=== PATIENT | female | born 1965 | race Asian ===

== ENCOUNTER 2016-08-04 18:17 | Inpatient (IN) | payer SELFPAY ==
[~2016-08-04] VITALS: Ht 149.9 cm; Wt 56.3 kg
[2016-08-04] VITALS (7 sets, daily range): BP systolic 94–118; BP diastolic 51–80; PULSE 77–87; RESP 16–20; TEMP 98.9–99.4; O2SAT 97–100
[2016-08-04] MEDS ORDERED: SODIUM CHLORIDE 0.9% FLUSH 5 ML FLUSH IVF PRN (19:15)
--- NOTE | 2016-08-04 19:18 | PD ---
HPI Chief Complaint: Bleeding Time Seen by Provider: 19:03 Travel History International Travel<30 days: No Contact w/Intl Traveler<30days: No Traveled to known affect area: No History of Present Illness HPI The patient is a 51-year-old obese female who states that she was told by her [facility] herbal physician to go to the emergency department to get a transfusion. She has heavy periods and this last one is lasted for 2 months. When she stands up she gets dizzy and she feels generally weak. She had a transfusion and 2004 for the same reason. Her hemoglobin at that time was 5.9. She does not have a primary care physician or reinforcing iron and rebar workers. She denies any melanotic or bloody stools. She denies any fever. She does have occasional shortness of breath. Her only chest pain as a sharp chest pain at the costochondral junction on the left. PFSH Past Medical History Alzheimer's Disease: Yes Arthritis: No Asthma: No Autoimmune Disease: No Blood Disorders: No Cancer: No Chemotherapy: No COPD: No Cerebrovascular Accident: No GERD: No Glaucoma: No Hepatitis: No Hiatal Hernia: No Kidney Stones: No Psychiatric: No Reproductive: Yes (VAGINAL BLEEDING) Immunizations Current: Yes Radiation Therapy: No Renal Failure: No Seizures: No Sleep Apnea: No Thyroid Disease: No Ulcer: No Tetanus Vaccination: Unknown ?: Not LMP: CONTINUOUS X 2-3 MONTHS Past Surgical History AICD: No Genitourinary Surgery: No Pacemaker: No Other Surgery: Yes (BREAST AUGMENTATION, RHINOPLASTY) Social History Alcohol Use: Yes (RARE) Tobacco Use: No (NEVER) Substance Use: No Allergies-Medications (Allergen,Severity, Reaction): Coded Allergies: No Known Allergies (Verified , 08/04/16) Reported Meds & Prescriptions Reported Meds & Active Scripts Active No Active Prescriptions or Reported Medications Review of Systems Except as stated in HPI: all other systems reviewed are Neg Physical Exam Narrative GENERAL: The patient is alert, oriented 3, extremely anemic appearing and no other apparent distress. Her vital signs show blood pressure 9451 and otherwise normal. SKIN: Warm and dry. HEAD: Atraumatic. Normocephalic. EYES: Pupils equal and round. No scleral icterus. No injection or drainage. ENT: No nasal bleeding or discharge. Mucous membranes pink and moist. NECK: Trachea midline. No JVD. CARDIOVASCULAR: Regular rate and rhythm. No murmur appreciated. RESPIRATORY: No accessory muscle use. Clear to auscultation. Breath sounds equal bilaterally. GASTROINTESTINAL: Abdomen soft, non-tender, nondistended. Hepatic and splenic margins not palpable. MUSCULOSKELETAL: No obvious deformities. No clubbing. No cyanosis. No edema. NEUROLOGICAL: Awake and alert. No obvious cranial nerve deficits. Motor grossly within normal limits. Normal speech. PSYCHIATRIC: Appropriate mood and affect; insight and judgment normal. Data Data Last Documented VS Vital Signs Date Time Temp Pulse Resp B/P Pulse Ox O2 Delivery O2 Flow Rate FiO2 08/04/16 18:42 79 16 100 Room Air 08/04/16 18:23 98.9 94/51 Orders Basic Metabolic Panel (Bmp) (08/04/16 19:12) Comprehensive Metabolic Panel (08/04/16 19:12) Prothrombin Time / Inr (Pt) (08/04/16 19:12) Act Partial Throm Time (Ptt) (08/04/16 19:12) Urinalysis - C+S If Indicated (08/04/16 19:12) Red Blood Cells (Rbc) (08/04/16 19:12) Ecg Monitoring (08/04/16 19:12) Iv Access Insert/Monitor (08/04/16 19:12) Oximetry (08/04/16 19:12) Sodium Chloride 0.9% Flush (Ns Flush) (08/04/16 19:15) Type And Screen (08/04/16 19:12) Complete Blood Count With Diff (08/04/16 19:35) Ferritin (08/04/16 20:04) Iron/Tibc Profile (08/04/16 20:04) Blood Product Administration .UPON TRANSFUSION (08/04/16 20:06) Admit To Inpatient (08/04/16 ) Vital Signs (Adult) Q4H (08/04/16 20:06) Activity Oob With Assistance (08/04/16 20:06) Reamer Hand / Telemetry .CONTINUOUS (08/04/16 20:06) Intake + Output GARY.QSHIFT (08/04/16 20:06) Diet Regular Basic (08/05/16 Breakfast) Sodium Chloride 0.9% Flush (Ns Flush) (08/04/16 20:15) Sodium Chloride 0.9% Flush (Ns Flush) (08/04/16 21:00) Ondansetron Inj (Zofran Inj) (08/04/16 20:15) Bisacodyl Supp (Dulcolax Supp) (08/04/16 20:15) Comprehensive Metabolic Panel (08/05/16 06:00) Complete Blood Count With Diff (08/05/16 06:00) Scd Bilateral/Knee High GARY.BID (08/04/16 20:06) Sung Bilateral/Knee High GARY.QSHIFT (08/04/16 20:06) Acetaminophen (Tylenol) (08/04/16 20:15) Acetamin-Hydrocod 325-5 Mg ([place] 5-325 (08/04/16 20:15) Morphine Inj (Morphine Inj) (08/04/16 20:15) Inpatient Certification (08/04/16 ) Consult Gynecology (08/04/16 ) Us Pelvis Comp W Transvaginal (08/04/16 ) Hgb & Hct (08/04/16 20:08) Urine Culture (08/04/16 19:00) Labs Laboratory Tests Test 08/04/16 19:00 White Blood Count 8.8 TH/MM3 Red Blood Count 2.38 MIL/MM3 Hemoglobin 4.1 GM/DL Hematocrit 14.2 % Mean Corpuscular Volume 59.7 FL Mean Corpuscular Hemoglobin 17.3 PG Mean Corpuscular Hemoglobin 29.0 % Concent Red Cell Distribution Width 20.3 % Platelet Count 193 TH/MM3 Mean Platelet Volume 8.6 FL Neutrophils (%) (Auto) 67.3 % Lymphocytes (%) (Auto) 22.7 % Monocytes (%) (Auto) 9.1 % Eosinophils (%) (Auto) 0.3 % Basophils (%) (Auto) 0.6 % Neutrophils # (Auto) 5.9 TH/MM3 Lymphocytes # (Auto) 2.0 TH/MM3 Monocytes # (Auto) 0.8 TH/MM3 Eosinophils # (Auto) 0.0 TH/MM3 Basophils # (Auto) 0.1 TH/MM3 CBC Comment AUTO DIFF Differential Comment AUTO DIFF CONFIRMED Platelet Estimate NORMAL Platelet Morphology Comment NORMAL Spherocytes OCC Ovalocytes 1+ Prothrombin Time 10.1 SEC Prothromb Time International 0.9 RATIO Ratio Activated Partial 24.5 SEC Thromboplast Time Urine Color ORANGE Urine Turbidity SLIGHT Urine pH 6.5 Urine Specific [place] GREATER THAN 1.035 Urine Protein 300 OR GREATER mg/dL Urine Glucose (UA) NEG mg/dL Urine Ketones NEG mg/dL Urine Occult Blood LARGE Urine Nitrite POS Urine Bilirubin NEG Urine Leukocyte Esterase MOD Urine RBC 4-9 /hpf Urine WBC 9-14 /hpf Urine WBC Clumps OCC Urine Amorphous Sediment MOD Urine Bacteria OCC /hpf Urine Mucus MOD /lpf Microscopic Urinalysis Comment CULTURE INDICATED Sodium Level 141 MEQ/L Potassium Level 3.5 MEQ/L Chloride Level 107 MEQ/L Carbon Dioxide Level 24.9 MEQ/L Anion Gap 9 MEQ/L Blood Urea Nitrogen 11 MG/DL Creatinine 0.68 MG/DL Estimat Glomerular Filtration 91 ML/MIN Rate Random Glucose 87 MG/DL Calcium Level 7.6 MG/DL Total Bilirubin 0.3 MG/DL Aspartate Amino Transf 13 U/L (AST/SGOT) Alanine Aminotransferase 17 U/L (ALT/SGPT) Alkaline Phosphatase 41 U/L Total Protein 6.8 GM/DL Albumin 3.3 GM/DL MDM Medical Decision Making Medical Screen Exam Complete: Yes Emergency Medical Condition: Yes Medical Record Reviewed: Yes Interpretation(s) The hemoglobin is 4.1 with hematocrit of 14.2. The platelet count is normal. The MCV, MCH and MCHC are all low. The coagulation profile is normal. The complete metabolic profile shows a calcium 7.6 and albumin 3.3 but is otherwise unremarkable. The urine shows 300 or greater protein, specific gravity greater than 1.035, large occult blood, positive nitrite, 4-19 red cells with 9-14 white cells, occasional bacteria and culture is indicated. Differential Diagnosis Anemia, vaginal bleeding, noncompliance to physician follow-up, urinary tract infection, electrolyte disorder Narrative Course The patient has severe anemia which is likely from her vaginal bleeding. Plan: Patient be admitted and given multiple transfusions. Diagnosis Primary Impression: Anemia Additional Impression: Vaginal bleeding, abnormal Admitting Information Admitting Physician Requests: Admit Scripts No Active Prescriptions or Reported Zhao Chen MD Aug 04, 2016 19:18
[2016-08-04 19:45] LABS: BLOOD, URINE LARGE (NEG); GLUCOSE,URINE NEG (NEG); KETONE, URINE NEG (NEG); PH, URINE 6.5 (5.0-8.5)
[2016-08-04 19:48] LABS: AUTOMATED NEUTROPHIL # 5.9 TH/MM3 (1.8-7.7); BASOPHIL # 0.1 TH/MM3 (0-0.2); BASOPHIL % 0.6 % (0.0-2.0); EOSINOPHIL % 0.3 % (0.0-4.0); LYMPH % 22.7 % (9.0-44.0); MEAN CELL VOLUME 59.7 FL (80.0-100.0); MEAN CORPUSCULAR HEMOGLOBIN 17.3 PG (27.0-34.0); MONO % 9.1 % (0.0-8.0); NEUT % 67.3 % (16.0-70.0); PLATELET COUNT 193 TH/MM3 (150-450); RED BLOOD COUNT 2.38 MIL/MM3 (4.00-5.30); RED CELL DISTRIBUTION WIDTH 20.3 % (11.6-17.2); WHITE BLOOD COUNT 8.8 TH/MM3 (4.0-11.0)
[2016-08-04 19:50] LABS: HEMO FLAGS AUTO DIFF
[2016-08-04 19:54] LABS: HEMATOCRIT 14.2 % (35.0-46.0)
[2016-08-04 20:08] LABS: CHLORIDE 107 MEQ/L (98-107); POTASSIUM 3.5 MEQ/L (3.5-5.1); SODIUM (NA) 141 MEQ/L (136-145)
[2016-08-04 20:11] LABS: ANION GAP 9 MEQ/L (5-15); BICARBONATE 24.9 MEQ/L (21.0-32.0); BLOOD UREA NITROGEN 11 MG/DL (7-18); OVALOCYTES 1+ (NORMAL); PLATELET ESTIMATE SMEAR NORMAL (NORMAL); PLATELET MORPHOLOGY NORMAL (NORMAL); SCAN/DIFF AUTO DIFF CONFIRMED; SPHEROCYTES OCC (NORMAL)
[2016-08-04 20:12] LABS: APTT (PATIENT) 24.5 SEC (24.3-30.1); INTERNATIONAL NORMALIZED RATIO 0.9 RATIO; PROTHROMBIN TIME - PATIENT 10.1 SEC (9.8-11.6)
[2016-08-04 20:14] LABS: ALT (GPT) 17 U/L (10-53)
[2016-08-04 20:15] LABS: AST (GOT) 13 U/L (15-37); GLOMERULAR FILTRATION RATE 91 ML/MIN (>89)
[2016-08-04] MEDS ORDERED: SODIUM CHLORIDE 0.9% FLUSH 5 ML FLUSH FLUSH PRN (20:15)
[2016-08-04] MEDS ORDERED: MORPHINE SULFATE 4 MG/ML INJ IV PRN (20:15)
[2016-08-04] MEDS ORDERED: ONDANSETRON HCL 4 MG/2 ML VIAL IVP PRN (20:15)
[2016-08-04] MEDS ORDERED: BISACODYL 10 MG SUPP PR PRN (20:15)
[2016-08-04] MEDS ORDERED: ACETAMINOPHEN/HYDROcodone 325 MG/5 MG TAB PO PRN (20:15)
[2016-08-04] MEDS ORDERED: ACETAMINOPHEN 325 MG TAB PO PRN (20:15)
[2016-08-04 20:16] LABS: TOTAL BILIRUBIN ADULT 0.3 MG/DL (0.2-1.0)
[2016-08-04 20:17] LABS: ALKALINE PHOSPHATASE 41 U/L (45-117)
[2016-08-04 20:19] LABS: NITRITE,URINE POS (NEG)
[2016-08-04 20:20] LABS: MUCUS URINE MOD /lpf (OCC); URINE COLOR ORANGE (YELLW/STRAW)
[2016-08-04 20:21] LABS: BACTERIA, URINE OCC /hpf; COMMENT (UR) CULTURE INDICATED; CULTURE IF INDICATED CULTURE INDICATED
[2016-08-04 20:57] LABS: FERRITIN 1 NG/ML (8-252); TRANSFERRIN IRON PROFILE 355 MG/DL (200-360)
[2016-08-04] MEDS: SODIUM CHLORIDE 0.9% FLUSH 5 ML FLUSH FLUSH SCH (21:00)
[2016-08-05] VITALS (27 sets, daily range): BP systolic 119–170; BP diastolic 74–96; PULSE 64–76; RESP 16–24; TEMP 97.9–99.2; O2SAT 96–100
[2016-08-05 05:46] LABS: AUTOMATED NEUTROPHIL # 4.9 TH/MM3 (1.8-7.7); BASOPHIL % 0.6 % (0.0-2.0); EOSINOPHIL % 0.2 % (0.0-4.0); HEMATOCRIT 23.9 % (35.0-46.0); LYMPH % 26.1 % (9.0-44.0); MEAN CELL VOLUME 70.2 FL (80.0-100.0); MEAN CORPUSCULAR HEMOGLOBIN 21.8 PG (27.0-34.0); MONO % 11.3 % (0.0-8.0); NEUT % 61.8 % (16.0-70.0); PLATELET COUNT 203 TH/MM3 (150-450); RED CELL DISTRIBUTION WIDTH 25.3 % (11.6-17.2); WHITE BLOOD COUNT 7.8 TH/MM3 (4.0-11.0)
[2016-08-05 05:56] LABS: CHLORIDE 109 MEQ/L (98-107); HEMO FLAGS AUTO DIFF; POTASSIUM 3.9 MEQ/L (3.5-5.1); SODIUM (NA) 143 MEQ/L (136-145)
[2016-08-05 06:00] LABS: ANION GAP 7 MEQ/L (5-15); BICARBONATE 26.6 MEQ/L (21.0-32.0); BLOOD UREA NITROGEN 12 MG/DL (7-18)
[2016-08-05 06:03] LABS: ALT (GPT) 15 U/L (10-53); AST (GOT) 13 U/L (15-37); GLOMERULAR FILTRATION RATE 112 ML/MIN (>89)
[2016-08-05 06:05] LABS: TOTAL BILIRUBIN ADULT 0.5 MG/DL (0.2-1.0)
[2016-08-05 06:06] LABS: ALKALINE PHOSPHATASE 43 U/L (45-117)
[2016-08-05 07:23] LABS: OVALOCYTES 1+ (NORMAL); SCAN/DIFF AUTO DIFF CONFIRMED; TARGET CELLS 1+ (NORMAL)
[2016-08-05] MEDS: SODIUM CHLORIDE 0.9% FLUSH 5 ML FLUSH FLUSH SCH (08:10)
--- NOTE | 2016-08-05 08:46 | HHI.HP ---
HPI Service [facility] Hospitalists Primary Care Physician No Primary Care Physician Admission Diagnosis severe anemia, vaginal bleeding Diagnoses: Chief Complaint: Abnormal vaginal bleeding Fatigue SOB Dark stools Travel History International Travel<30 Days: No Contact w/Intl Traveler <30 Da: No Traveled to Known Affected Are: No History of Present Illness This is a 51-year-old female who appears younger than her stated age who presented to [facility] ED with complaints of fatigue, shortness of breath and abnormal vaginal bleeding and was sent to the ED by her [facility] physician for a blood transfusion. Patient reports near continuous daily vaginal bleeding for the past 3 months with associated mild lower abdominal pain that is occasionally worse at times. She states her bleeding became much heavier in the past week and she developed worsening shortness of breath and increased fatigue. She denies any chest pain or palpitations. She reports postural dizziness upon standing as well as generalized weakness. She also reports a single episode of nausea with nonbloody vomitus yesterday. She admits to dark stools ongoing with nearly every BM for the past month. She denies any BRBPR or diarrhea. She denies any previous EGD or colonoscopy. She denies any urinary frequency, urgency, hematuria or dysuria. She reports history of a previous transfusion in 2003 following a Pap smear with unknown biopsy and incidentally this is the last time she was seen by medical receptionist assistant. She reports a long history of low iron and takes supplementation infrequently. In the ED, hemoglobin was 4.1 with hematocrit of 14.2. The MCV, MCH and MCHC are all low. The urine shows 300 or greater protein, specific gravity greater than 1.035, large occult blood, positive nitrite, 4-19 red cells with 9-14 white cells, occasional bacteria and culture is indicated. Iron studies obtained revealed iron of 9, TIBC of 497, % sat 1.8 and ferritin level of 1. Patient received 2 units PRBCs and hemoglobin has improved to 7.4 and hematocrit to 23.9. Review of Systems Constitutional: COMPLAINS OF: Fatigue (x one week), Fever (unrecorded 2 days last week, now resolved), Dizziness (upon standing, as stated in history of present illness, for the past week), DENIES: Diaphoretic episodes, Chills, Night Sweats Endocrine: DENIES: Polydipsia, Polyuria Eyes: DENIES: Blurred vision, Diplopia, Eye pain Ears, nose, mouth, throat: DENIES: Throat pain, Running Nose Respiratory: COMPLAINS OF: Shortness of breath (x one week, as stated in history of present illness), DENIES: Cough, Wheezing, Hemoptysis Cardiovascular: COMPLAINS OF: Dyspnea on Exertion, Lower Extremity Edema ( chronic intermittent swelling in the hands and feet bilaterally), DENIES: Chest pain, Syncope Gastrointestinal: COMPLAINS OF: Abdominal pain (mild lower abdominal pain), Black stools, Nausea (1 episode yesterday), Vomiting (patient reports 1 episode of nonbloody vomitus yesterday), DENIES: Bloody stools, Diarrhea Genitourinary: COMPLAINS OF: Abnormal vaginal bleeding (ongoing for the past 3 months but much worse in the last month), DENIES: Urinary frequency, Urgency, Hematuria, Dysuria Musculoskeletal: COMPLAINS OF: Back pain (occasional), DENIES: Joint pain, Muscle aches Integumentary: DENIES: Pruritus, Rash Hematologic/lymphatic: DENIES: Lymphadenopathy Immunologic/allergic: DENIES: Eczema, Urticaria Neurologic: COMPLAINS OF: Speech Problems, DENIES: Headache, Paresthesias, Seizures, Poor Balance Psychiatric: DENIES: Confusion, Mood changes, Depression Past Family Social History Past Medical History GERD Chronic anemia Near daily vaginal bleeding for the past 3 months, much worse in the last week Past Surgical History Breast augmentation Rhinoplasty Reported Medications Iron supplementation which patient which admits she takes rarely Allergies: Coded Allergies: No Known Allergies (Verified , 08/04/16) Active Ordered Medications Current Medications Medications (Trade) Dose Ordered Sig/Jacob Route Start Time Stop Time Status Last Admin (NS Flush) 2 ml UNSCH PRN FLUSH 08/04/16 20:15 (NS Flush) 2 ml BID FLUSH 08/04/16 21:00 (Zofran Inj) 4 mg Q6H PRN IVP 08/04/16 20:15 (Dulcolax Supp) 10 mg DAILY PRN SC 08/04/16 20:15 (Tylenol) 650 mg Q6H PRN PO 08/04/16 20:15 ([place] 5-325 Mg) 1 tab Q4H PRN PO 08/04/16 20:15 (Morphine Inj) 2 mg Q3H PRN IV 08/04/16 20:15 (Ferrous Sulfate) 325 mg BID PO 08/05/16 09:00 (Vitamin C) 500 mg BID PO 08/05/16 09:00 Family History Father, alive, age 73, diabetes Mother, alive, age 72, hypertension Social History Patient denies any tobacco use, alcohol consumption or illicit drug use Physical Exam Vital Signs Vital Signs Date Time Temp Pulse Resp B/P Pulse Ox O2 Delivery O2 Flow Rate FiO2 08/05/16 03:57 98.6 72 16 135/80 96 08/05/16 03:01 98.7 72 16 120/74 96 08/05/16 01:20 99.2 76 16 119/74 96 08/05/16 01:20 99.2 76 16 119/74 96 08/04/16 23:44 98.9 80 20 118/80 97 08/04/16 22:25 98.9 100 08/04/16 22:14 99.4 85 18 102/66 98 Room Air 08/04/16 22:10 99.4 84 18 94/55 100 Room Air 08/04/16 21:41 77 16 107/68 98 Room Air 08/04/16 20:30 87 16 100/57 99 Room Air 08/04/16 18:42 79 16 100 Room Air 08/04/16 18:23 98.9 82 16 94/51 100 Physical Exam GENERAL: This is a well-nourished, well-developed patient, who appears younger than her stated age, in no apparent distress. A&Ox3. SKIN: No rashes, ecchymoses or lesions. Cool and dry. HEAD: Atraumatic. Normocephalic. No temporal or scalp tenderness. EYES: Pupils equal round and reactive. Extraocular motions intact. No scleral icterus. No injection or drainage. ENT: Nose without bleeding, purulent drainage or septal hematoma. Throat without erythema, tonsillar hypertrophy or exudate. Uvula midline. Airway patent. NECK: Trachea midline. No lymphadenopathy. Supple, nontender, no meningeal signs. CARDIOVASCULAR: Regular rate and rhythm without murmurs, gallops, or rubs. RESPIRATORY: Clear to auscultation. Breath sounds equal bilaterally. No wheezes , rales, or rhonchi. GASTROINTESTINAL: Abdomen soft, non-tender, nondistended. No hepato-splenomegaly , or palpable masses. No guarding. RECTAL: (+)external hemorrhoids, good sphincter tone, guaiac negative at bedside MUSCULOSKELETAL: Extremities without clubbing, cyanosis, or edema. No joint tenderness, effusion, or edema noted. No calf tenderness. NEUROLOGICAL: Awake and alert. Cranial nerves II through XII intact. Motor and sensory grossly within normal limits. Five out of 5 muscle strength in all muscle groups. Normal speech. Laboratory Laboratory Tests Test 08/04/16 08/04/16 08/05/16 19:00 19:52 05:15 White Blood Count 8.8 7.8 Red Blood Count 2.38 3.40 Hemoglobin 4.1 7.4 Hematocrit 14.2 23.9 Mean Corpuscular Volume 59.7 70.2 Mean Corpuscular Hemoglobin 17.3 21.8 Mean Corpuscular Hemoglobin 29.0 31.0 Concent Red Cell Distribution Width 20.3 25.3 Platelet Count 193 203 Mean Platelet Volume 8.6 9.9 Neutrophils (%) (Auto) 67.3 61.8 Lymphocytes (%) (Auto) 22.7 26.1 Monocytes (%) (Auto) 9.1 11.3 Eosinophils (%) (Auto) 0.3 0.2 Basophils (%) (Auto) 0.6 0.6 Neutrophils # (Auto) 5.9 4.9 Lymphocytes # (Auto) 2.0 2.0 Monocytes # (Auto) 0.8 0.9 Eosinophils # (Auto) 0.0 0.0 Basophils # (Auto) 0.1 0.0 CBC Comment AUTO DIFF AUTO DIFF Differential Comment AUTO DIFF AUTO DIFF CONFIRMED CONFIRMED Platelet Estimate NORMAL Platelet Morphology Comment NORMAL Spherocytes OCC Ovalocytes 1+ 1+ Prothrombin Time 10.1 Prothromb Time International 0.9 Ratio Activated Partial 24.5 Thromboplast Time Urine Color ORANGE Urine Turbidity SLIGHT Urine pH 6.5 Urine Specific [place] GREATER THAN 1.035 Urine Protein 300 OR GREATER Urine Glucose (UA) NEG Urine Ketones NEG Urine Occult Blood LARGE Urine Nitrite POS Urine Bilirubin NEG Urine Leukocyte Esterase MOD Urine RBC 4-9 Urine WBC 9-14 Urine WBC Clumps OCC Urine Amorphous Sediment MOD Urine Bacteria OCC Urine Mucus MOD Microscopic Urinalysis Comment CULTURE INDICATED Sodium Level 141 143 Potassium Level 3.5 3.9 Chloride Level 107 109 Carbon Dioxide Level 24.9 26.6 Anion Gap 9 7 Blood Urea Nitrogen 11 12 Creatinine 0.68 0.57 Estimat Glomerular Filtration 91 112 Rate Random Glucose 87 83 Calcium Level 7.6 7.5 Iron Level 9 Total Iron Binding Capacity 497 Percent Iron Saturation 1.8 Ferritin 1 Total Bilirubin 0.3 0.5 Aspartate Amino Transf 13 13 (AST/SGOT) Alanine Aminotransferase 17 15 (ALT/SGPT) Alkaline Phosphatase 41 43 Total Protein 6.8 6.1 Albumin 3.3 2.9 Blood Type O POSITIVE O POSITIVE Antibody Screen NEGATIVE Crossmatch Leukocyte-Reduced Red Blood Cells Blood Bank Comment Target Cells 1+ Date/Time Procedure Status Source Growth 08/04/16 19:00 Urine Culture Received Urine Clean Catch Pending Result Diagram: 08/05/16 0515 08/05/16 0515 Imaging Last Impressions Pelvis Ultrasound 08/05/16 0000 Signed Impressions: Service Date/Time: Friday, August 05, 2016 08:32 - CONCLUSION: 1. Mildly enlarged and heterogeneous uterus. There is a solid mass in the left mid uterine body measuring 19 mm. Imaging features are characteristic of intramural leiomyoma. 2. No endometrial abnormality is identified. However, given the appearance of the myometrium adenomyosis should be a consideration. Rahat Argueta MD Assessment and Plan Assessment and Plan 51-year-old female who appears younger than her stated age who presented to [facility] ED with complaints of fatigue, shortness of breath and abnormal vaginal bleeding and was sent to the ED by her [facility] herbal physician for a blood transfusion. Abnormal uterine bleeding - Dr. Gunn discussed case with Dr. Gayle, serology technician mechatronics engineer - Per Dr. Gayle recommendations, start on Provera 20mg HS, first dose now - transvaginal US reveals mildly enlarged uterus, 19mm left mid uterine mass characteristic of intramural leiomyoma but consideration of myometrium adenomyosis - F/u as outpatient in her clinic Symptomatic anemia - secondary to above - s/p transfusion 2u PRBCs - h/h improved from 4.1/14.2 -> 7.4/23.9, post transfusion, to receive 2 more additional units - repeat H/H following last transfusion - iron studies indicative of severe LASHANDA, po supplementation ordered, may benefit from iron transfusion Dark stools - FOBT ordered - recommend follow up with GI specialist as outpatient for possible panendoscopy - bedside guaiac test negative ?UTI - UA positive for nitrites, leukocytes and bacteria - IV Rocephin - follow up on UCX results External hemorrhoids - Proctofoam q8h prn GERD - PPI DVT prophylaxis - not indicated due to active bleeding Written by Anila Andino PA-C acting as scribe for Dr. Gunn on 08/05/16 at 13:33. All or portions of this note were transcribed by scribe [Anila]. I, Dr. Elisabeth Gunn personally performed the history, physical exam, and medical decision making; and confirmed the accuracy of the information in the transcribed note. Authenticated by Dr. Elisabeth Gunn on 08/05/16 at 13:56. Physician Certification 2 Midnight Certification Type: Admission for Inpatient Services Order for Inpatient Services The services are ordered in accordance with Medicare regulations or non- Medicare payer requirements, as applicable. In the case of services not specified as inpatient-only, they are appropriately provided as inpatient services in accordance with the 2-midnight benchmark. Estimated LOS (days): 2 days is the estimated time the patient will need to remain in the hospital, assuming treatment plan goals are met and no additional complications. Post-Hospital Plan: Home Anila Andino Aug 05, 2016 08:46 Elisabeth Gunn MD Aug 05, 2016 13:56
[2016-08-05] MEDS ORDERED: PANTOPRAZOLE SOD 40 MG DELAYED RELEASE TAB PO SCH (09:00)
[2016-08-05] MEDS ORDERED: FERROUS SULFATE 325 MG (65 MG ELEMENTAL IRON) TAB PO SCH (09:00)
[2016-08-05] MEDS ORDERED: ASCORBIC ACID 500 MG TAB PO SCH (09:00)
--- NOTE | 2016-08-05 09:22 | RADHPO ---
EXAM DATE/TIME: 08/05/2016 08:32 [place] COMPARISON: No previous studies available for comparison. INDICATIONS : Vaginal bleeding. MEDICAL HISTORY : Alzheimer's Vaginal bleeding. Chronic anemia. SURGICAL HISTORY : Breast augmentation. Rhinoplasty. Blood transfusions. ENCOUNTER: Initial ACUITY: 3 months PAIN SCORE: 4/10 LOCATION: Bilateral pelvis MEASUREMENTS: LEFT OVARY: 3.4 x 1.9 x 2.0 cm UTERUS: 9.4 x 6.9 x 6.4 cm ENDOMETRIAL STRIPE: 8 mm RIGHT OVARY: 2.3 x 2.0 x 1.5 cm FINDINGS: UTERUS: Uterine echotexture is very heterogeneous. There is a hypoechoic solid mass in the left mid uterine b alan measuring 1.9 x 1.2 x 1.3 cm. There is a nabothian cyst within the cervix. Endometrium appears re latively homogeneous without a focal lesion. RIGHT OVARY: Ovary contains no mass or significant cystic lesion. LEFT OVARY: Ovary contains no mass or significant cystic lesion. MISCELLANEOUS: No free fluid. CONCLUSION: 1. Mildly enlarged and heterogeneous uterus. There is a solid mass in the left mid uterine body measu ring 19 mm. Imaging features are characteristic of intramural leiomyoma. 2. No endometrial abnormality is identified. However, given the appearance of the myometrium adenomyo sis should be a consideration. Rahat Argueta MD on August 05, 2016 at 9:17 Board Certified Radiologist. This report was verified electronically.
[2016-08-05] MEDS ORDERED: cefTRIAXone INJ 1,000 MG in SODIUM CHLORIDE 0.9% INJ 100 ML IV SCH (10:00)
[2016-08-05] MEDS ORDERED: medroxyPROGESTERone ACETATE 10 MG TAB PO SCH (11:00)
[2016-08-05] MEDS ORDERED: HYDROCORTISONE/PRAMOXINE RECTAL FOAM 10 GM CAN RECTAL PRN (13:30)
[2016-08-05] MEDS ORDERED: HYDROCORTISONE/PRAMOXINE RECTAL FOAM 10 GM CAN RECTAL ONE (15:00)
[2016-08-05] MEDS ORDERED: MEDR10TA7 PO (15:26)
[2016-08-05] MEDS ORDERED: VITA500T PO (15:26)
[2016-08-05] MEDS ORDERED: FERR325T PO (15:26)
--- NOTE | 2016-08-05 15:30 | HHI.DCPOC ---
Discharge Care Plan Diagnosis: (1) Anemia (2) Iron deficiency anemia (3) Vaginal bleeding, abnormal Additional Problems Abnormal uterine bleeding Iron deficiency anemia UTI Discharge patient to home Condition on discharge: Improved Regular Diet as tolerated [place] activity Rx written: Ferrous Sulfate, Vitamin C, Provera Follow-up with primary care physician Goals to Promote Your Health * To prevent worsening of your condition and complications * To maintain your health at the optimal level Directions to Meet Your Goals Take your medications as prescribed Follow your dietary instruction Follow activity as directed Keep your appointments as scheduled Take your immunizations and boosters as scheduled If your symptoms worsen call your PCP, if no PCP go to Urgent Care Center or Emergency Room Smoking is Dangerous to Your Health. Avoid second hand smoke Call the 24-hour hour crisis hotline for domestic abuse at Anila Andino Aug 05, 2016 15:30
[2016-08-05] MEDS ORDERED: CIPR250T52 PO (16:47)
[2016-08-06] MEDS ORDERED: medroxyPROGESTERone ACETATE 10 MG TAB PO SCH (21:00)
== END 2016-08-05 17:31 | disposition home or self-care (01) | DRG 760 ==
LOC: PHED 18:17 → PHEDA 20:36 → PHICU 23:35
PROVIDERS: ADMIT Family Medicine; ATTEND Family Medicine
PROC: 30233N1 Transfusion of Nonautologous Red Blood Cells into Peripheral Vein, Percutaneous Approach (ICD-10-PCS; principal; 2016-08-04)
DX: N93.9 Abnormal uterine and vaginal bleeding, unspecified (principal); N39.0 Urinary tract infection, site not specified; G30.9 Alzheimer's disease, unspecified; D64.9 Anemia, unspecified; R06.02 Shortness of breath; K21.9 Gastro-esophageal reflux disease without esophagitis; K64.4 Residual hemorrhoidal skin tags; D25.1 Intramural leiomyoma of uterus
CPT/HCPCS: 36430; 76830; 76856; 80053; 81001; 82728; 83540; 83550; 84443; 85025; 85610; 85730; 86850; 86900; 86901; 86920; 87086; 99285; J0696; P9016

== ENCOUNTER 2016-09-06 23:00 | Emergency (ER) | payer SELFPAY ==
[~2016-09-06] VITALS: Ht 152.4 cm; Wt 57.8 kg
[~2016-09-06 23:00] MED LIST: CIPR250T52 PO; FERR325T PO; MEDR10TA7 PO; VITA500T PO
[2016-09-06 23:06] VITALS: BP 112/70; PULSE 74; RESP 18; TEMP 98.2; O2SAT 100
[2016-09-07 00:40] LABS: AUTOMATED NEUTROPHIL # 3.2 TH/MM3 (1.8-7.7); BASOPHIL % 0.8 % (0.0-2.0); EOSINOPHIL # 0.2 TH/MM3 (0-0.4); EOSINOPHIL % 2.9 % (0.0-4.0); HEMATOCRIT 23.9 % (35.0-46.0); LYMPH % 27.7 % (9.0-44.0); LYMPHOCYTE # 1.5 TH/MM3 (1.0-4.8); MEAN CELL VOLUME 86.5 FL (80.0-100.0); MEAN CORPUSCULAR HEMOGLOBIN 26.7 PG (27.0-34.0); MEAN CORPUSCULAR HGB CONC 30.9 % (32.0-36.0); MONO % 8.3 % (0.0-8.0); NEUT % 60.3 % (16.0-70.0); PLATELET COUNT 196 TH/MM3 (150-450); RED BLOOD COUNT 2.76 MIL/MM3 (4.00-5.30); RED CELL DISTRIBUTION WIDTH 27.7 % (11.6-17.2); WHITE BLOOD COUNT 5.4 TH/MM3 (4.0-11.0)
[2016-09-07 00:41] VITALS: BP 93/60; PULSE 72; RESP 20; O2SAT 100
[2016-09-07 00:42] LABS: HEMO FLAGS AUTO DIFF
[2016-09-07 00:52] LABS: APTT (PATIENT) 23.6 SEC (24.3-30.1); INTERNATIONAL NORMALIZED RATIO 0.9 RATIO; PROTHROMBIN TIME - PATIENT 10.4 SEC (9.8-11.6)
[2016-09-07 01:00] LABS: OVALOCYTES 1+ (NORMAL); PLATELET ESTIMATE SMEAR NORMAL (NORMAL); PLATELET MORPHOLOGY NORMAL (NORMAL); SCAN/DIFF AUTO DIFF CONFIRMED
--- NOTE | 2016-09-07 01:14 | PD ---
HPI Chief Complaint: Bleeding Time Seen by Provider: 23:57 Travel History International Travel<30 days: No Contact w/Intl Traveler<30days: No Traveled to known affect area: No History of Present Illness HPI 51-year-old female presents to the emergency department for complaint of recurrent vaginal bleeding. Patient has been seen several times for chronic prolonged dysfunctional uterine bleeding. Patient was recently hospitalized 08/04 due to anemia requiring transfusion related to ongoing vaginal bleeding. Patient was put on Provera. Patient followed up with senior ecologist who told her she needed to undergo hysterectomy. Patient states her insurance is not in place at this time therefore has not been able to schedule surgery. Patient subsequently has run out of her Provera. Patient did not contact her senior ecologist. Patient has not had any new shortness of breath near syncope syncope dizziness or weakness. Patient denies other concerns or complaints. Patient denies pain. PFSH Past Medical History Narrative Medical Vaginal bleeding, UTI, ovarian cyst, uterine fibroid, breast augmentation, rhinoplasty, occasional alcohol use; nursing notes reviewed Alzheimer's Disease: Yes Arthritis: No Asthma: No Autoimmune Disease: No Blood Disorders: No Cancer: No Cardiovascular Problems: No Chemotherapy: No COPD: No Cerebrovascular Accident: No Diabetes: No Diminished Hearing: No Endocrine: No GERD: No Glaucoma: No Genitourinary: Yes (pt c/o frequent urination) Hepatitis: No Hiatal Hernia: No Kidney Stones: No Musculoskeletal: No Neurologic: No Psychiatric: No Reproductive: Yes (VAGINAL BLEEDING) Respiratory: No Immunizations Current: Yes Radiation Therapy: No Renal Failure: No Seizures: No Sleep Apnea: No Thyroid Disease: No Ulcer: No Tetanus Vaccination: Unknown ?: Not LMP: Unknown due to constant bleeding Ovarian Cysts: Yes Past Surgical History AICD: No Genitourinary Surgery: No Pacemaker: No Other Surgery: Yes (BREAST AUGMENTATION, RHINOPLASTY) Social History Alcohol Use: Yes (RARE) Tobacco Use: No (NEVER) Substance Use: No Allergies-Medications (Allergen,Severity, Reaction): Coded Allergies: No Known Allergies (Verified , 09/06/16) Reported Meds & Prescriptions Reported Meds & Active Scripts Active Provera (Medroxyprogesterone Acetate) 10 Mg Tab 20 Mg PO DAILY 7 Days Start day 16 Review of Systems Except as stated in HPI: all other systems reviewed are Neg General / Constitutional: No: Fever, Chills HENT: No: Congestion Cardiovascular: No: Chest Pain or Discomfort Respiratory: No: Shortness of Breath Gastrointestinal: No: Nausea, Vomiting, Abdominal Pain Genitourinary: Positive: Vaginal Bleeding Musculoskeletal: No: Myalgias, Arthralgias Skin: No Rash Neurologic: No: Weakness, Dizziness, Syncope Psychiatric: No: Anxiety Hematologic/Lymphatic: No: Easy Bruising Physical Exam Narrative GENERAL: Well-developed well-nourished female in no acute distress no respiratory distress SKIN: Warm and dry. HEAD: Normocephalic. EYES: No scleral icterus. No injection or drainage. NECK: Supple, trachea midline. No JVD or lymphadenopathy. CARDIOVASCULAR: Regular rate and rhythm without murmurs, gallops, or rubs. RESPIRATORY: Breath sounds equal bilaterally. No accessory muscle use. GASTROINTESTINAL: Abdomen soft, non-tender, nondistended. Pelvic exam: Normal external exam no induration erythema lesions or blood; speculum exam clot and fresh blood cervical os closed; no cervical motion tenderness no adnexal mass or tenderness. MUSCULOSKELETAL: No cyanosis, or edema. BACK: Nontender without obvious deformity. No CVA tenderness. Data Data Last Documented VS Vital Signs Date Time Temp Pulse Resp B/P Pulse Ox O2 Delivery O2 Flow Rate FiO2 09/07/16 03:31 84 16 117/52 98 Room Air 09/07/16 01:31 98.2 Orders Complete Blood Count With Diff (09/06/16 23:57) Type And Screen (09/06/16 23:57) Act Partial Throm Time (Ptt) (09/06/16 23:57) Prothrombin Time / Inr (Pt) (09/06/16 23:57) ^ Saline Lock (09/06/16 23:57) Orthostatic Vital Signs (09/06/16 23:57) Medroxyprogesterone Acetate (Provera) (09/07/16 02:15) Sodium Chlorid 0.9% 500 Ml Inj (Ns 500 M (09/07/16 02:15) AGID (09/07/16 00:25) Labs Laboratory Tests Test 09/07/16 00:25 White Blood Count 5.4 TH/MM3 Red Blood Count 2.76 MIL/MM3 Hemoglobin 7.4 GM/DL Hematocrit 23.9 % Mean Corpuscular Volume 86.5 FL Mean Corpuscular Hemoglobin 26.7 PG Mean Corpuscular Hemoglobin 30.9 % Concent Red Cell Distribution Width 27.7 % Platelet Count 196 TH/MM3 Mean Platelet Volume 9.1 FL Neutrophils (%) (Auto) 60.3 % Lymphocytes (%) (Auto) 27.7 % Monocytes (%) (Auto) 8.3 % Eosinophils (%) (Auto) 2.9 % Basophils (%) (Auto) 0.8 % Neutrophils # (Auto) 3.2 TH/MM3 Lymphocytes # (Auto) 1.5 TH/MM3 Monocytes # (Auto) 0.4 TH/MM3 Eosinophils # (Auto) 0.2 TH/MM3 Basophils # (Auto) 0.0 TH/MM3 CBC Comment AUTO DIFF Differential Comment AUTO DIFF CONFIRMED Platelet Estimate NORMAL Platelet Morphology Comment NORMAL Ovalocytes 1+ Prothrombin Time 10.4 SEC Prothromb Time International 0.9 RATIO Ratio Activated Partial 23.6 SEC Thromboplast Time Blood Type O POSITIVE Antibody Screen POSITIVE Antibody Identification Anti-Jka Antigen Identification Jka Antigen - NEGATIVE Crossmatch Leukocyte-Reduced Red Blood Cells Blood Bank Comment [facility] Medical Decision Making Medical Screen Exam Complete: Yes Emergency Medical Condition: Yes Medical Record Reviewed: Yes Interpretation(s) CBC & BMP Diagram 09/07/16 00:25 Differential Diagnosis Dysfunctional uterine bleeding, anemia, uterine fibroid, Narrative Course Patient with chronic recurrent uterine bleeding off of her Provera will assess for worsening anemia. Patient has not contacted her senior ecologist since follow- up after hospitalization and did not contact her senior ecologist regarding being out of her Provera. Hemoglobin 7.4 this is unchanged from 08/04/16 post transfusion Patient resting comfortably aware of hemoglobin results and offered first dose of Provera in the emergency department as well as prescription refill but encouraged to follow up closely with her senior ecologist regarding scheduling her outpatient procedure and ongoing management with Provera. Patient acknowledges understanding of diagnosis and discharge instructions. Diagnosis Primary Impression: Vaginal bleeding, abnormal Additional Impression: Anemia Referrals: [employer] [address] Posey or your RECORDS ADMINIST[employer]ATOR Dr Gayle Patient Instructions: General Instructions Additional Instructions: Follow-up with your senior ecologist Return to the emergency department for any concerns Take medication as prescribed Med/Other Pt SpecificInfo: Prescription(s) given Scripts Medroxyprogesterone Acetate (Provera)10 Mg Tab20 Mg PO DAILY 7 Days Ref 0 Start day 16 Prov:Shyla Monteiro MD 09/07/16 Disposition: DISCHARGE HOME Condition: Stable Shyla Monteiro MD Sep 07, 2016 01:14
[2016-09-07 01:31] VITALS: BP 112/70; PULSE 74; RESP 20; TEMP 98.2; O2SAT 100
[2016-09-07 01:56] VITALS: BP_SYST 84; BP_SYST 90; BP_SYST 99; BP_DIAS 43; BP_DIAS 46; BP_DIAS 59
[2016-09-07] MEDS ORDERED: PROV10TA PO (02:05)
[2016-09-07] MEDS ORDERED: medroxyPROGESTERone ACETATE 10 MG TAB PO ONE (02:15)
[2016-09-07] MEDS ORDERED: SODIUM CHLORID 0.9% 500 ML INJ 500 ML IV ONE (02:15)
[2016-09-07 03:08] VITALS: BP 98/57
[2016-09-07 03:31] VITALS: BP 117/52; PULSE 84; RESP 16; O2SAT 98
== END 2016-09-07 03:20 | disposition home or self-care (01) ==
LOC: PHED 23:00
DX: N93.8 Other specified abnormal uterine and vaginal bleeding (principal); D64.9 Anemia, unspecified; G30.9 Alzheimer's disease, unspecified; R35.0 Frequency of micturition
CPT/HCPCS: 85025; 85610; 85730; 86077; 86850; 86870; 86900; 86901; 86902; 86920; 86922; 96360; 99284; J7040